=== PATIENT | male | born 1980 | race Caucasian/White ===

== ENCOUNTER 2019-08-18 14:01 | Emergency (ER) | payer BC ==
[2019-08-18 14:16] VITALS: BP 114/75; PULSE 83; TEMP 98.8; BMI 24.4
--- NOTE | 2019-08-18 14:16 | PDOC ---
Rapid Medical Evaluation Time Seen by Provider: 08/18/19 14:14 Medical Evaluation: 08/18/19 14:14 I have performed a brief in-person evaluation of this patient. The patient presents with a chief complaint of:lesion to nose Pertinent physical exam findings: swelling non painful lesion to distal external tip of nose. I have ordered the following: nothing The patient will proceed to the ED for further evaluation. Discharge Disposition - Diagnosis Nasal lesion - Discharge Dispostion Condition at time of disposition: Stable - Referrals - Patient Instructions - Post Discharge Activity
--- NOTE | 2019-08-18 14:45 | PDOC ---
History of Present Illness - General Chief Complaint: Abscess Boil Stated Complaint: BOIL Time Seen by Provider: 08/18/19 14:14 - History of Present Illness Initial Comments: 08/18/19 14:41 CHIEF COMPLAINT: nose problem HISTORY OF PRESENT ILLNESS: 39 yo M with no significant PMH presents to [facility] with concern of growth on his nose. Patient states he has noticed "something growing at the tip of my nose" for the past month, but he disregarded it initially because he had just moved into a new apartment. He denies any pain to the nose, denies any other symptoms. No recent travel or sick contacts. PAST MEDICAL HISTORY: Denies past medical history FAMILY HISTORY: Denies SOCIAL HISTORY: Denies tobacco, alcohol, illicit drug use. SURGICAL HISTORY: Denies ALLERGIES: No known drug allergies REVIEW OF SYSTEMS General/Constitutional: Denies fever or chills. Denies weakness, weight change. HEENT: "i have something growing on my nose." Denies change in vision. Denies ear pain or discharge. Denies sore throat. Cardiovascular: Denies chest pain or shortness of breath. Respiratory: Denies cough, wheezing, or hemoptysis. Gastrointestinal: Denies nausea, vomiting, diarrhea or constipation. Denies rectal bleeding. Genitourinary: Denies dysuria, frequency, or change in urination. Musculoskeletal: Denies joint or muscle swelling or pain. Denies neck or back pain. Skin and breasts: Denies rash or easy bruising. Neurologic: Denies headache, vertigo, loss of consciousness, or loss of sensation. Psychiatric: Denies depression or anxiety. PHYSICAL EXAM General Appearance: Well-appearing, appropriately dressed. No apparent distress , no intoxication. HEENT: EOMI, PERRLA, normal ENT inspection, normal voice, TMs normal, pharynx normal. No conjunctival pallor. No photophobia, scleral icterus. Neck: Supple. Trachea midline. No tenderness, rigidity, carotid bruit, stridor , lymphadenopathy, or thyromegaly. Respiratory/Chest: Lungs CTAB. No shortness of breath, chest tenderness, respiratory distress, accessory muscle use. No crackles, rales, rhonchi, stridor , wheezing, dullness Cardiovascular: RRR. S1, S2. No JVD, murmur, bradycardia, tachycardia. Vascular Pulses: Dorsalis-Pedis (R): 2+, Dorsalis-Pedis (L): 2+ Gastrointestinal/Abdominal: Normal bowel sounds. Abdomen soft, non-distended. No tenderness or rebound tenderness. No organomegaly, pulsatile mass, guarding , hernia, hepatomegaly, splenomegaly. Lymphatic: No adenopathy, tenderness. Musculoskeletal/Extremities: Normal inspection. FROM of all extremities, normal capillary refill. Pelvis Stable. No CVA tenderness. No tenderness to extremities, pedal edema, swelling, erythema or deformity. Integumentary: Mild discoloration to tip of nose. Appropriate color, dry, warm. No cyanosis, erythema, jaundice or rash Neurologic: station jailer II-XII intact. Fully oriented, alert. Appropriate mood/affect. Motor strength 5/5. No appreciable EOM palsy, facial droop or sensory deficit. 08/18/19 17:37 Past History - Past Medical History Allergies/Adverse Reactions: Allergies Allergy/AdvReac Type Severity Reaction Status Date / Time No Known Allergies Allergy Verified 08/18/19 14:16 COPD: No - Psycho Social/Smoking Cessation Hx Smoking History: Never smoked *Physical Exam - Vital Signs Last Vital Signs Temp Pulse Resp BP Pulse Ox 98.8 F 83 18 114/75 97 08/18/19 14:11 08/18/19 14:11 08/18/19 14:11 08/18/19 14:11 08/18/19 14:11 Medical Decision Making - Medical Decision Making 08/18/19 14:44 39 yo M with no significant PMH presents [facility] with concern of growth on his nose. Advised pt to f/u with derm for skin biopsy, patient agrees to plan. Discharge - Discharge Information Problems reviewed: Yes Clinical Impression/Diagnosis: Nasal lesion Condition: Stable Disposition: HOME - Admission No - Follow up/Referral Referrals: Shantel Boyer MD [Staff Physician] - - Patient Discharge Instructions Patient Printed Discharge Instructions: Skin Self-Exam (SSE) - Post Discharge Activity
== END 2019-08-18 14:49 | disposition home or self-care (01) ==
LOC: JERFT 14:01
DX: J34.89 Other specified disorders of nose and nasal sinuses (principal); L98.8 Other specified disorders of the skin and subcutaneous tissue
CPT/HCPCS: 99281-25

== ENCOUNTER 2021-11-26 17:08 | Emergency (ER) | payer BC ==
[2021-11-26 17:30] VITALS: TEMP 98; BMI 25.1
[2021-11-26] MEDS ORDERED: IBUPROFEN 400 MG TABLET (FP) PO ONE ×2 (18:21→19:03)
[2021-11-26 18:58] LABS: EOS % 4.6 % (0-4.5); HEMATOCRIT 44.8 % (35.4-49); HEMOGLOBIN 14.8 GM/dL (11.7-16.9); LYMPH % 25.9 % (8-40); MEAN CELL VOLUME 93.9 fl (80-96); MONO % 10.8 % (3.8-10.2); NEUT % 57.7 % (42.8-82.8); PLATELET COUNT 194 10^3/uL (134-434); RBC 4.77 M/mm3 (4.00-5.60); RDW 13.6 % (11.9-15.9); WHITE BLOOD COUNT 4.8 K/mm3 (4.0-10.0)
[2021-11-26 19:11] VITALS: BP 129/92; PULSE 70
[2021-11-26 19:23] LABS: ALBUMIN 4.2 g/dl (3.4-5.0); CALCIUM 9.6 mg/dL (8.5-10.1)
[2021-11-26 19:26] LABS: CREATININE 0.9 mg/dL (0.55-1.3)
[2021-11-26 19:28] LABS: BILIRUBIN,TOTAL 0.4 mg/dL (0.2-1); TOT PROT 7.3 g/dl (6.4-8.2)
== END 2021-11-26 20:59 | disposition home or self-care (01) ==
LOC: JER 17:08
DX: R07.89 Other chest pain (principal)
CPT/HCPCS: 36415; 71046-TC-FY; 80053; 84443; 84484; 85025; 93005; 93010; 99285-25